=== PATIENT | male | born 1985 | race Two or more races ===

== ENCOUNTER 2022-10-02 07:43 | Day surgery (SDC) | payer OTHER ==
[2022-10-02] MEDS ORDERED: CEPHALEXIN500 MG PO (12:59)
[2022-10-02] MEDS ORDERED: AYR SALINE50 ML NASAL (12:59)
== END 2022-10-02 15:35 | disposition home or self-care (01) ==
LOC: CIR.AMB 07:43 → EDBD 08:00 → CIR.AMB 08:00
PROVIDERS: ATTEND Otolaryngology Otology & Neurotology
DX: J34.2 Deviated nasal septum (principal); J34.3 Hypertrophy of nasal turbinates; Z20.822 Contact with and (suspected) exposure to COVID-19